=== PATIENT | male | born 1975 | race Two or more races ===

== ENCOUNTER 2024-11-24 19:22 | Emergency (ER) | payer MEDICAID ==
[~2024-11-24] VITALS: Ht 182.9 cm; Wt 79.4 kg
[2024-11-24] MEDS: KETOROLAC TROMETHAMINE INJ 30 MG/ML VIAL IM ONE (20:10)
[2024-11-24] MEDS ORDERED: IBUP-1953 PO (20:55)
[2024-11-24 21:02] VITALS: BP 149/88; TEMP 98.3; O2SAT 98
== END 2024-11-24 21:02 | disposition home or self-care (01) ==
LOC: ER 19:26
DX: S86.911A Strain of unspecified muscle(s) and tendon(s) at lower leg level, right leg, initial encounter (principal); M79.661 Pain in right lower leg; Z79.1 Long term (current) use of non-steroidal anti-inflammatories (NSAID); X50.0XXA Overexertion from strenuous movement or load, initial encounter; Y93.89 Activity, other specified; Y92.89 Other specified places as the place of occurrence of the external cause; Y99.8 Other external cause status
CPT/HCPCS: 99283; 96372; 73590; J1885